=== PATIENT | male | born 1995 | race Caucasian/White ===

== ENCOUNTER 2022-06-08 19:23 | Emergency (ER) | payer OTHER, BC, SELFPAY ==
[2022-06-08 19:32] VITALS: BP 171/94; PULSE 89; RESP 16; TEMP 36.1; O2SAT 97
--- NOTE | 2022-06-08 19:36 | CRLHL7_ITS ---
For Patients: As a result of the Century Cures Act, medical imaging exams and procedure reports are released immediately into your electronic medical record. You may view this report before your referring provider. If you have questions, please contact your health care provider. Indication: Trauma. Technique: Right second digit, 3 views. Comparison: None. Findings/impression: Bones: Alignment is normal. No fractures or bone lesions. Joint spaces: Unremarkable. Soft tissues: Linear radiopaque foreign body is identified in the dorsal soft tissues overlying the distal 2nd metacarpal measuring approximately 5 millimeters in length.. Dictated by Nehemiah Arevalo MD @ 06/08/2022 8:06:58 PM (Electronically Signed)
--- NOTE | 2022-06-08 19:41 | ED.GENADULT ---
HPI - General Adult General Date Seen: 06/08/22 Chief complaint: Unspecified Complaint, Adult Stated complaint: Air hammer chisel to R pointer finger Time Seen by Provider: 06/08/22 19:35 History of Present Illness HPI narrative: Patient is a 26-year-old male who had an ear gun chisel injury to his right 2nd metacarpal one week ago. There is a small puncture wound that healed rapidly. There is still pain and swelling in it seems to be getting worse and not better. He believes that his last tetanus was within the last 10 years. He has had no fevers or chills. No pain extending proximally. The pain is localized to the proximal phalanx and 2nd metacarpal. He wonders if there could be a metallic foreign body. Related Data Home Medications Medication Instructions Recorded Confirmed amlodipine 10 mg tablet 10 mg PO DAILY 06/08/22 06/08/22 citalopram 20 mg tablet 20 mg PO QAM 06/08/22 06/08/22 Previous Rx's Medication Instructions Recorded cephalexin 500 mg capsule 500 mg PO TID 7 days #21 caps 06/08/22 Allergies Allergy/AdvReac Type Severity Reaction Status Date / Time No Known Drug Allergies Allergy Verified 06/08/22 19:35 Review of Systems Narrative: Review of systems is outlined above otherwise noted to be negative. PFSH PFSH Social History Smoking Status: Never smoker Do you use any of these nicotine containing products: None Second hand tobacco smoke exposure: Yes How often do you have a drink containing alcohol: monthly or less How often do you have six or more drinks on one occasion: Less than monthly AUDIT-C Alcohol total score: 2 Non-prescribed substance use: denies use Exam Narrative: Exam Narrative: Vitals noted. Lungs are clear. Heart is regular without murmur. Examination of the right upper extremity shows some soft tissue swelling over the 2nd metacarpal head. There is no open wound. He can fully extend the fingers. He cannot quite make a fist because of swelling. There is bony tenderness over the metacarpal head. No fluctuance. No involvement of the flexor or extensor tendon. Const: Vital Signs, click to edit/add: Vital Signs - 24 hr 06/08/22 19:32 Temperature 97 F L Pulse Rate [Left P ulse Oximeter] 89 Respiratory Rate 16 Blood Pressure [Ri ght Upper Arm] 171/94 H Pulse Oximetry 97 Oxygen Delivery Me thod Room Air Course Course Hospital Course: Patient was seen and examined. X-ray of the right hand is ordered. We will verify his tetanus status. Reevaluation(s) Reevaluation #1: Last tetanus was September 2017. His x-rays did not show a fracture but there is a retained metallic foreign body in the soft tissue over the distal right 2nd metacarpal. No sign of osteomyelitis or abscess. He is given Keflex 500 mg orally as the pharmacies are closed. Vital Signs Vital signs: Initial Vital Signs Temperature 97 F L 06/08/22 19:32 Temperature Source Temporal Artery Scan 06/08/22 19:32 Pulse Rate 89 06/08/22 19:32 Pulse Rhythm Regular 06/08/22 19:32 Respiratory Rate 16 06/08/22 19:32 Blood Pressure 171/94 H 06/08/22 19:32 Blood Pressure Mean 119 H 06/08/22 19:32 Blood Pressure Position Sitting 06/08/22 19:32 Pulse Oximetry 97 06/08/22 19:32 Oxygen Delivery Method Room Air 06/08/22 19:32 Vital Signs Temperature 97 F L 06/08/22 19:32 Pulse Rate 89 06/08/22 19:32 Respiratory Rate 16 06/08/22 19:32 Blood Pressure 171/94 H 06/08/22 19:32 Pulse Oximetry 97 06/08/22 19:32 Oxygen Delivery Method Room Air 06/08/22 19:32 Temperature 97 F L 06/08/22 19:32 Pulse Rate 89 06/08/22 19:32 Respiratory Rate 16 06/08/22 19:32 Blood Pressure 171/94 H 06/08/22 19:32 Pulse Oximetry 97 06/08/22 19:32 Oxygen Delivery Method Room Air 06/08/22 19:32 Medical Decision Making MDM Narrative Medical decision making narrative: We discussed that he needs to have this piece of metal removed and that is best done by one of the orthopedic surgeons, possibly in the operating room under fluoroscopy. He will be discharged on oral antibiotic with close follow-up with ortho. He is to return if he develops fevers or chills, redness or streaking. Discharge Plan Discharge Clinical Impression: Metal foreign body in dorsum of hand Patient Disposition: Home, Self-Care Condition: Stable Additional Instructions: Keflex 500 mg 3 times daily for one week. Tylenol for pain. Call [phone] to schedule a follow-up appointment with one of the orthopedic docs. Your last tetanus was September 2017. Prescriptions: New cephalexin 500 mg capsule 500 mg PO TID 7 Days Qty: 21 0RF No Action citalopram 20 mg tablet 20 mg PO QAM amlodipine 10 mg tablet 10 mg PO DAILY Follow Up/Referrals: Tarik Sarabia MD [Primary Care Provider] - Dario Hummel MD [Staff Physician] - Stand Alone Forms: [employer] Info Instructions
[2022-06-08] MEDS: cephALEXin 500 MG CAPSULE 1000 MG PO (20:18)
--- NOTE | 2022-06-08 21:53 | ED.NURSE ---
09/21/2017 was last tdap on [facility]
== END 2022-06-08 20:44 | disposition home or self-care (01) ==
PROVIDERS: Emergency Provider Family Medicine; PCP Family Medicine
DX: M79.5 Residual foreign body in soft tissue (principal)
CPT/HCPCS: 73140; 99282; 99283; 99284; A9270